=== PATIENT | male | born 1950 | race Caucasian/White ===

== ENCOUNTER → 2018-07-14 | Outpatient (CLI) | payer OTHER ==
--- NOTE | 2018-07-14 11:52 | 2DMMODE ---
[facility] [place] [address] 2 D/M-MODE ECHOCARDIOGRAM Name: CATASTEFANIA Room #: REG [facility]#: [id number] Admission: 07/14/18 Attend Phys: Audra Ramsey Discharge: Date of : 46 Date of Service: 07/14/18 1152 Report #: [id number] THIS REPORT FOR: //name// APPROVED REPORT Study performed: 07/14/2018 10:19:48 EXAM: Comprehensive 2D, Doppler, and color-flow Echocardiogram Patient Location: Out-Patient Status: routine BSA: 2.04 HR: 93 bpm BP: 122/76 mmHg Rhythm: NSR Other Information Study Quality: Fair Technically limited study due to COPD. Indications Short of breath. COPD. 2D Dimensions RVDd: 39.96 mm IVSd: 13.01 (7-11mm) LVOT Diam: 22.42 (18-24mm) LVDd: 41.15 mm PWd: 9.72 (7-11mm) LVDs: 28.47 (25-40mm) Aortic Root: 35.15 mm Volumes Left Atrial Volume (Systole) Single Plane 4CH: 25.60 mL Single Plane 2CH: 27.33 mL LA ESV Index: 14.00 mL/m2 Aortic Valve AoV Peak Prabhjot.: 1.18 m/s AO Peak Gr.: 5.57 mmHg LVOT Max P.15 mmHg LVOT Max V: 1.13 m/s ANTONIO Vmax: 3.79 cm2 Mitral Valve E/A Ratio: 0.8 MV Decel. Time: 252.18 ms [facility] [address] [place] [address] 2 D/M-MODE ECHOCARDIOGRAM Name: STEFANIA IVY Room #: REG [facility].#: [id number] Admission: 07/14/18 Attend Phys: Audra Ramsey Discharge: Date of : 46 Date of Service: 07/14/18 1152 Report #: [id number] MV E Max Prabhjot.: 0.50 m/s MV A Prabhjot.: 0.65 m/s MV PHT: 73.13 ms IVRT: 76.12 ms Pulmonary Valve PV Peak Prabhjot.: 1.14 m/s PV Peak Gr.: 5.19 mmHg Tricuspid Valve RAP Estimate: 5.00 mmHg Left Ventricle The left ventricle is normal size. Regional wall motion appears grossly normal. There is normal left ventricular wall thickness. Left ventricular systolic function is normal. LVEF is 60%. Mild diastolic dysfunction is present (impaired relaxation pattern). Right Ventricle The right ventricle is grossly normal size and function. Atria The left atrium size is normal. The right atrium size is normal. Aortic Valve The aortic valve is normal in structure and mildly thickened. No aortic regurgitation is present. There is no aortic valvular stenosis. Mitral Valve The mitral valve is normal in structure. There is no mitral valve regurgitation noted. No evidence of mitral valve stenosis. Tricuspid Valve The tricuspid valve is normal in structure. Trace tricuspid regurgitation. Unable to assess PA pressure. Pulmonic Valve The pulmonary valve is normal in structure. Trace pulmonic regurgitation. Great Vessels The aortic root is normal in size. Ascending aorta is not well visualized. IVC is normal in size and collapses >50% with inspiration. [facility] [place] [address] 2 D/M-MODE ECHOCARDIOGRAM Name: CATASTEFANIA Room #: REG [place]#: [id number] Admission: 07/14/18 Attend Phys: Audra Ramsey Discharge: Date of : 46 Date of Service: 07/14/18 1152 Report #: [id number] Pericardium There is no pericardial effusion. <Conclusion> The left ventricle is normal size. There is normal left ventricular wall thickness. Left ventricular systolic function is normal. Mild diastolic dysfunction is present (impaired relaxation pattern). The right ventricle is grossly normal size and function. The left atrium size is normal. The right atrium size is normal. The aortic valve is normal in structure and mildly thickened. The mitral valve is normal in structure. Trace tricuspid regurgitation. <ELECTRONICALLY SIGNED> By: Alessandro Suarez MD 07/14/18 1152 51 51 Alessandro Suarez MD /INF
== END ==
LOC: CV 09:46 → EDSTATUS 09:47 → CV 11:04
DX: J43.9 Emphysema, unspecified (principal); I35.8 Other nonrheumatic aortic valve disorders; J96.11 Chronic respiratory failure with hypoxia; I70.0 Atherosclerosis of aorta; J47.9 Bronchiectasis, uncomplicated; J92.9 Pleural plaque without asbestos; R91.8 Other nonspecific abnormal finding of lung field; D89.9 Disorder involving the immune mechanism, unspecified; F17.200 Nicotine dependence, unspecified, uncomplicated

== ENCOUNTER → 2019-09-04 | Outpatient (CLI) | payer OTHER | LOC: CAT 10:08 | DX: J43.9 Emphysema, unspecified (principal); R91.1 Solitary pulmonary nodule; J98.4 Other disorders of lung ==

== ENCOUNTER → 2020-03-20 | Outpatient (CLI) | payer OTHER | LOC: CAT 11:06 | PROVIDERS: ATTEND Pediatrics | DX: J43.9 Emphysema, unspecified (principal); R91.8 Other nonspecific abnormal finding of lung field; J47.9 Bronchiectasis, uncomplicated; M25.78 Osteophyte, vertebrae; I25.10 Atherosclerotic heart disease of native coronary artery without angina pectoris ==

== ENCOUNTER → 2020-05-20 | Outpatient (CLI) | payer OTHER | LOC: CAT 08:29 | PROVIDERS: ATTEND Pediatrics | DX: J43.9 Emphysema, unspecified (principal); R91.8 Other nonspecific abnormal finding of lung field; J47.9 Bronchiectasis, uncomplicated; J98.4 Other disorders of lung; M47.814 Spondylosis without myelopathy or radiculopathy, thoracic region ==

== ENCOUNTER → 2020-11-19 | Outpatient (CLI) | payer OTHER | LOC: CAT 10:56 | PROVIDERS: ATTEND Pediatrics | DX: J43.9 Emphysema, unspecified (principal); R91.8 Other nonspecific abnormal finding of lung field; J98.11 Atelectasis; J47.9 Bronchiectasis, uncomplicated; I70.0 Atherosclerosis of aorta; I25.10 Atherosclerotic heart disease of native coronary artery without angina pectoris ==

== ENCOUNTER → 2020-12-03 | Outpatient (CLI) | payer OTHER ==
[2020-12-03 11:30] LABS: CALCIUM 9.8 mg/dL (8.5-10.1); CREATININE 1.4 mg/dL (0.7-1.3)
== END ==
LOC: CAT 08:25
PROVIDERS: ATTEND Pediatrics
DX: J43.9 Emphysema, unspecified (principal); R91.8 Other nonspecific abnormal finding of lung field

== ENCOUNTER → 2020-12-03 | Outpatient (CLI) | payer OTHER | LOC: SJCVCIMAG 12:32 | PROVIDERS: ATTEND Internal Medicine Cardiovascular Disease | DX: R94.31 Abnormal electrocardiogram [ECG] [EKG] (principal); I45.10 Unspecified right bundle-branch block; R06.00 Dyspnea, unspecified; I50.32 Chronic diastolic (congestive) heart failure; J44.9 Chronic obstructive pulmonary disease, unspecified; R03.0 Elevated blood-pressure reading, without diagnosis of hypertension; Z79.899 Other long term (current) drug therapy ==

== ENCOUNTER → 2020-12-16 | Outpatient (CLI) | payer OTHER | LOC: SJCVCIMAG 10:38 | PROVIDERS: ATTEND Internal Medicine Cardiovascular Disease | DX: R00.0 Tachycardia, unspecified (principal); I45.10 Unspecified right bundle-branch block; I49.1 Atrial premature depolarization; R10.9 Unspecified abdominal pain; R51.9 Headache, unspecified; I11.0 Hypertensive heart disease with heart failure; I50.9 Heart failure, unspecified; J44.9 Chronic obstructive pulmonary disease, unspecified; R06.00 Dyspnea, unspecified; R03.0 Elevated blood-pressure reading, without diagnosis of hypertension; F17.210 Nicotine dependence, cigarettes, uncomplicated; Z79.82 Long term (current) use of aspirin; Z79.899 Other long term (current) drug therapy ==

== ENCOUNTER → 2020-12-29 | Outpatient (CLI) | payer OTHER ==
[~2020-12-29] VITALS: Ht 177.8 cm; Wt 74.8 kg
[~2020-12-29] MED LIST: ASA81BEC PO; BROVANA15 MCG/2 M INH; BUDESONIDE1 MG/2 ML INH; DALIRESP250 MCG PO; IPRAT-ALBUT 0.5-3 ML INH; PROAIR HFA8.5 GM INH; RAYOS5 MG PO; THEO-24300 MG PO; [UNRECOGNIZED DRUG - OTHER] INH
[2020-12-29 08:38] VITALS: BP 116/56
--- NOTE | 2020-12-29 12:37 | CATHLAB ---
[facility] [address] [place] [address] INVASIVE PROCEDURE REPORT Name: STEFANIA IVY [id number]: 12/29/20 Attend Phys: Alessandro Suarez MD Discharge: Date of : 46 Report #: [id number] THIS REPORT FOR: cc: PAULINA JONES FAM - No family physician/PCP Alessandro Suarez MD ~ APPROVED REPORT Study performed: 12/29/2020 08:52:40 Patient Details Patient Status: Out-Patient Room #: The patient is a 70 year-old male Event Personnel Alessandro Suarez [employer] Sales Representative, Ria Ochoa RN RN, Caren Clark Monitor, Joselin Dawson RTR, SENIOR MANUFACTURING ENGINEER Scrub Procedures Performed Art Access - R femoral artery* Left Heart Cath w/or w/o Coronaries [id number] [facility] [address] Initial Mod Sed Same Phys/QHP Gr5y [id number] Mod Sed Same Phys/QHP Ea [id number] Hemostasis with Manual pressure Indication Dyspnea, Positive stress test Risk Factors Peripheral Vascular Disease, Chronic Lung DiseaseHypercholesterolemia, Tobacco History () Procedure Narrative The Right Groin^ was infiltrated with 1% Lidocaine subcutaneous anesthesia. A PINNACLE 5FR Sheath #[id number] sheath was inserted into the RFA 4F^. Coronary angiography was performed using coronary diagnostic catheters. The right coronary system was accessed and visualized with a jr4 catheter. The left coronary system was accessed and visualized with a jl4 / ar mod catheter. Hemostasis was obtained with manual pressure following sheath removal without any complications. There was no hematoma. Intraoperative Conscious Sedation Sedation start time: 928 Case end Time: 1009 [facility] [address] [place] [address] INVASIVE PROCEDURE REPORT Name: CATASTEFANIA RIBEIRO Room #: REG [facility]#: [id number] Admission: 12/29/20 Attend Phys: Alessandro Suarez MD Discharge: Date of : 46 Report #: [id number] Fentanyl 50 mcg Versed 1 mg Fluoro Time: 3.30 minutes Dose: DAP 4402.60 cGycm2 642 mGy Contrast Type and Amount: Omnipaque 60 ml Coronary Angiography The patient's coronary anatomy is right dominant. Diagnostic Cath LAD The LAD is a moderate-sized caliber vessel, traverses the anterior wall and terminates at the apex. There is mild calcification with minimal plaquing noted in the midsegment. Diagonal 1 There is a small to moderate-sized caliber vessel, patent with no flow-limiting lesions. Diagonal 2 There is a small to moderate-sized caliber vessel, patent with no flow-limiting lesions. 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 There is mild diffuse stenosis in the proximal segment, 20%. OM1 There is a small to moderate-sized caliber vessel, patent with no flow-limiting lesions. OM2 There is a small to moderate-sized caliber vessel, patent with no flow-limiting lesions. OM3 There is a moderate-sized caliber vessel, patent with no flow-limiting lesions. Right Coronary The RCA is a moderate to large caliber vessel, dominant. There is mild disease in the proximal and mid segments, 20%. R PDA There is a moderate-sized caliber vessel, extending around the apex. There are no flow-limiting lesions. RPLV There is a moderate-sized caliber vessel, patent with no flow-limiting lesions. Left Ventriculography Left Ventriculography was not performed. Ejection Fraction was 55-60% based off patient's Nuclear Cardiac Stress Test. An LVEDP was measured and there is no gradient across the outflow tract. Hemodynamics The aortic pressure is 116/63 mmHg with a mean of 89 mmHg. The left ventricular pressure is 119/3 mmHg with a mean of mmHg. The left ventricular end diastolic pressure is [address] [facility] [address] [place] [address] INVASIVE PROCEDURE REPORT Name: CATASTEFANIA RIBEIRO Room #: REG [facility]#: [id number] Admission: 12/29/20 Attend Phys: Alessandro Suarez MD Discharge: Date of : 46 Report #: [id number] 1. There is mild disease in the epicardial vessels. 2. 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 3. There is normal LV systolic function. 4. Recommend risk factor management. <ELECTRONICALLY SIGNED> By: Alessandro Suarez MD 12/29/20 1237 123 123 Alessandro Suarez MD /INF
== END ==
LOC: CATH 07:22
PROVIDERS: ATTEND Internal Medicine Cardiovascular Disease
DX: R06.09 Other forms of dyspnea (principal); J44.9 Chronic obstructive pulmonary disease, unspecified; R03.0 Elevated blood-pressure reading, without diagnosis of hypertension; F17.200 Nicotine dependence, unspecified, uncomplicated; Z79.899 Other long term (current) drug therapy; Z98.890 Other specified postprocedural states

== ENCOUNTER 2021-01-14 13:11 | Emergency (ER) | payer OTHER ==
[~2021-01-14] VITALS: Ht 177.8 cm; Wt 68.0 kg
[2021-01-14 14:09] LABS: ABSOLUTE NEUTROPHILS 8.7 thou/uL (1.4-8.2); BASOPHILS 0.8 % (0.0-2.0); EOSINOPHILS 1.3 % (0.0-3.0); HEMATOCRIT 42.1 % (42.0-52.0); HEMOGLOBIN 13.9 gm/dL (14.0-18.0); LYMPHOCYTES 11.4 % (24.0-44.0); MCV 93.9 fL (80.0-100.0); MONOCYTES 10.4 % (1.0-8.0); PLATELET COUNT 376 thou/uL (150-400); POLYS 76.1 % (36.0-66.0); RBC 4.49 mil/uL (4.50-6.00); RDW 13.5 % (10.5-14.5); WBC 11.5 thou/uL (4.0-11.0)
[2021-01-14 14:21] LABS: CALCIUM 9.1 mg/dL (8.5-10.1); CREATININE 1.1 mg/dL (0.7-1.3); POTASSIUM 4.3 mmol/L (3.5-5.1)
[2021-01-14 14:27] LABS: APTT 27.9 Seconds (24.5-32.8); PROTIME 10.9 Seconds (10.5-12.1)
[2021-01-14 15:54] VITALS: BP 123/74
== END 2021-01-14 15:54 | disposition home or self-care (01) ==
LOC: ER 13:11
PROVIDERS: Emergency Medicine
DX: M70.31 Other bursitis of elbow, right elbow (principal); M25.531 Pain in right wrist; J44.9 Chronic obstructive pulmonary disease, unspecified; I10 Essential (primary) hypertension; Z79.899 Other long term (current) drug therapy; Y93.89 Activity, other specified